=== PATIENT | female | born 1955 ===

== ENCOUNTER 2020-10-26 06:00 | Outpatient (RCR) | payer MEDICARE, SELFPAY | END 2020-11-16 23:59 | disposition home or self-care (01) | LOC: GPT 06:00 | PROVIDERS: PCP Family Medicine; Referring Provider Obstetrics & Gynecology; Visit Provider Obstetrics & Gynecology | DX: M25.552 Pain in left hip (principal) | CPT/HCPCS: 97032; 97110; 97140; 97161; 97530 ==

== ENCOUNTER 2024-06-17 05:00 | Outpatient (RCR) | payer OTHER, SELFPAY | END 2024-07-16 23:59 | disposition home or self-care (01) | LOC: GPT 05:00 | PROVIDERS: Visit Provider Anesthesiology | DX: M54.50 Low back pain, unspecified (principal) | CPT/HCPCS: 97162 ==

== ENCOUNTER 2024-07-17 06:00 | Outpatient (RCR) | payer MEDICARE, SELFPAY | END 2024-08-16 23:59 | disposition home or self-care (01) | LOC: GPT 06:00 | PROVIDERS: Visit Provider Anesthesiology | DX: M54.50 Low back pain, unspecified (principal) | CPT/HCPCS: 97110; 97112; 97140 ==